=== PATIENT | male | born 1955 | race Two or more races ===

== ENCOUNTER 2024-10-26 07:35 | Inpatient (IN) | payer OTHER ==
[~2024-10-26] VITALS: Ht 198.1 cm; Wt 73.9 kg
[2024-10-26] MEDS ORDERED: [UNRECOGNIZED DRUG - REMARK] (08:04)
[2024-10-26 08:05] VITALS: BP 168/90
[2024-10-26 08:30] LABS: PH,URINE 5.5 (5.0-8.0); URINE APPEARANCE Clear; URINE BILIRRUBIN Negative (NEGATIVE); URINE BLOOD Negative; URINE COLOR Yellow; URINE GLUCOSE Negative (NEGATIVE); URINE KETONE Negative (NEGATIVE); URINE LEUKOCYTE Negative; URINE NITRATE Negative; URINE PROTEIN Negative (NEGATIVE); URINE UROBILINOGEN 0.2 E.U./dl
[2024-10-26 08:31] LABS: HEMATOCRIT 41.9 % (39.0-48.0); MEAN CELL VOLUME 92.3 fL (80.0-100.00); MEAN CORPUSCULAR HEMOGLOBIN 30.8 pg (27.00-32.0); MEAN CORPUSCULAR HGB CONC 33.4 g/dl (32.0-36.0); RED BLOOD COUNT 4.54 M/uL (4.00-6.00); RED CELL DISTRIBUTION WIDTH 13.5 % (11.5-14.5)
[2024-10-26 08:32] LABS: URINE BACTERIA 23.9 uL (0.0-1933); URINE EPITHELIAL CELLS 2.3 uL (0.0-38.8); URINE RBC 3.8 uL (0.0-20.8); URINE WBC 3.5 uL (0.0-23.2)
[2024-10-26 08:33] LABS: URINE CAST 0.15 uL (0.0-1.40)
[2024-10-26 08:45] LABS: PLATELET COUNT 93 K/uL (150-450)
[2024-10-26 08:55] LABS: INR 0.97; PARTIAL THROMBOPLASTIN TIME 28.5 SECONDS (22.0-34.0)
[2024-10-26 09:15] LABS: PROTHROMBIN TIME 10.6 SECONDS (9.0-11.5)
[2024-10-26 09:27] LABS: ALBUMIN 3.9 gm/dL (3.4-5.0); BILIRUBIN TOTAL 0.59 mg/dL (0.3-1.2); CALCIUM 8.6 mg/dL (8.5-10.1); CREATININE SERUM 0.9 mg/dL (0.70-1.30); GFR 83.18; GLOBULINA 3.2 G/DL (2.4-3.5); POTASSIUM 3.94 mEq/L (3.5-5.1); TOTAL PROTEIN 7.1 gm/dL (6.4-8.2)
[2024-11-02] MEDS ORDERED: METRONIDAZOLE/SODIUM CHLORIDE 500 MG/100 ML PIGGYBACK IV SCH (11:30)
[2024-11-02] MEDS ORDERED: CEFTRIAXONE SODIUM 2,000 MG VIAL IV SCH (11:30)
[2024-11-02] MEDS ORDERED: LOSARTAN POTASS50 MG (15:33)
[2024-11-02] MEDS ORDERED: DORZOLAMIDE-TIM10 ML (15:33)
[2024-11-02] MEDS ORDERED: IRBESARTAN300 MG (15:33)
[2024-11-02] MEDS ORDERED: LUMIGAN2.5 M1 (15:33)
[2024-11-02] MEDS ORDERED: ONDANSETRON HCL 2 MG/ML VIAL IV PRN (17:15)
[2024-11-02] MEDS ORDERED: 0.9 % SODIUM CHLORIDE 1,000 ML IV SCH (17:15)
[2024-11-02] MEDS ORDERED: DEXTROSE 50 % IN WATER 0.5 G/ML DISP.SYRIN IV PRN (17:15)
[2024-11-02] MEDS ORDERED: MORPHINE SULFATE 4 MG/ML CARTRIDGE IV PRN (17:15)
[2024-11-02] MEDS ORDERED: MIDAZOLAM HCL 50 MG/10 ML VIAL IV SCH (17:45)
[2024-11-02] MEDS ORDERED: FentaNYL CITRATE/PF 50MCG/ML 2ML VIAL IJ STA (17:48)
[2024-11-02] MEDS ORDERED: MIDAZOLAM HCL 100 MG in 0.9 % SODIUM CHLORIDE 100 ML IV SCH (18:00)
[2024-11-02 19:09] LABS: HEMATOCRIT 42.5 % (39.0-48.0); HEMOGLOBIN 13.7 g/dL (13-16.00); MEAN CELL VOLUME 91.1 fL (80.0-100.00); MEAN CORPUSCULAR HEMOGLOBIN 29.3 pg (27.00-32.0); MEAN CORPUSCULAR HGB CONC 32.2 g/dl (32.0-36.0); RED BLOOD COUNT 4.67 M/uL (4.00-6.00); RED CELL DISTRIBUTION WIDTH 14.2 % (11.5-14.5)
[2024-11-02 19:10] LABS: PLATELET COUNT 76 K/uL (150-450)
[2024-11-02 19:24] LABS: ALBUMIN 2.5 gm/dL (3.4-5.0); CALCIUM 7.7 mg/dL (8.5-10.1); CREATININE SERUM 1.3 mg/dL (0.70-1.30); GFR 54.42; MAGNESIUM 1.5 mg/dL (1.8-2.4); PHOSPHOROUS 4.6 mg/dL (2.5-4.9)
[2024-11-02 19:29] LABS: POTASSIUM 6.23 mEq/L (3.5-5.1)
[2024-11-02] MEDS ORDERED: PROPOFOL 100 ML IV SCH (19:30)
[2024-11-02 19:56] LABS: ABG PH 7.242 (7.35-7.45); ABG PO2 241.2 mmHg (80-100); ABG pCO2 41.7 mmHg (35-45); BASE EXCESS -9.4 mmol/l; BICARBONATE 17.5 mmol/l (23-25); SaO2 99.7 %; Tco2 18.8 mmol/l; o2 100 %
[2024-11-02 19:57] LABS: allen test SATISFACTORY; puncture site RADIAL RIGHT
[2024-11-02] MEDS ORDERED: NOREPINEPHRINE BITARTRATE 8 MG in DEXTROSE 5 % IN WATER 250 ML IV SCH (22:00)
[2024-11-02] MEDS ORDERED: SODIUM BICARBONATE 1 MEQ/ML DISP.SYRIN 50ML IV ONE (22:00)
[2024-11-03] VITALS (17 sets, daily range): BP systolic 71–158; BP diastolic 44–99; O2SAT 95–100
[2024-11-03 03:10] LABS: HEMATOCRIT 38.8 % (39.0-48.0); HEMOGLOBIN 12.8 g/dL (13-16.00); MEAN CELL VOLUME 90.9 fL (80.0-100.00); PLATELET COUNT 135 K/uL (150-450); RED BLOOD COUNT 4.26 M/uL (4.00-6.00); RED CELL DISTRIBUTION WIDTH 14.4 % (11.5-14.5)
[2024-11-03 06:32] LABS: HEMATOCRIT 40.4 % (39.0-48.0); HEMOGLOBIN 13.4 g/dL (13-16.00); MEAN CELL VOLUME 92.1 fL (80.0-100.00); MEAN CORPUSCULAR HEMOGLOBIN 30.6 pg (27.00-32.0); MEAN CORPUSCULAR HGB CONC 33.2 g/dl (32.0-36.0); PLATELET COUNT 132 K/uL (150-450); RED BLOOD COUNT 4.39 M/uL (4.00-6.00)
[2024-11-03 06:56] LABS: ALBUMIN 2.4 gm/dL (3.4-5.0); CREATININE SERUM 3.36 mg/dL (0.70-1.30); GFR 18.19; MAGNESIUM 1.5 mg/dL (1.8-2.4); PHOSPHOROUS 5.2 mg/dL (2.5-4.9)
[2024-11-03] MEDS ORDERED: 0.9 % SODIUM CHLORIDE 500 ML IV ONE (07:15)
[2024-11-03] MEDS ORDERED: PHENYLEPHRINE HCL 20 MG in 0.9 % SODIUM CHLORIDE 250 ML IV SCH (07:15)
[2024-11-03 07:20] LABS: CALCIUM 6.4 mg/dL (8.5-10.1); POTASSIUM 6.66 mEq/L (3.5-5.1)
[2024-11-03] MEDS ORDERED: SODIUM POLYSTYRENE SULFONATE 30G/8 TSP NGT SCH (08:00)
[2024-11-03] MEDS ORDERED: CALCIUM GLUCONATE 100 MG/ML VIAL IV NR (09:00)
[2024-11-03] MEDS ORDERED: HYOSCYAMINE SULFATE 0.125 MG TAB.SUBL SL SCH (09:00)
[2024-11-03] MEDS ORDERED: SODIUM BICARBONATE 50MEQ/50ML VIAL IV NR ×2 (09:00→10:00)
[2024-11-03] MEDS ORDERED: SODIUM BICARBONATE 150 MEQ in DEXTROSE 5 % IN WATER 1,000 ML IV SCH (09:45)
[2024-11-03] MEDS ORDERED: MEROPENEM 1,000 MG VIAL IV SCH (09:51)
[2024-11-03] MEDS ORDERED: AMINOCAPROIC ACID 250 MG/ML VIAL IV STA (09:53)
[2024-11-03 10:10] LABS: ABG PH 7.185 (7.35-7.45)
[2024-11-03 10:11] LABS: ABG PO2 154.5 mmHg (80-100); ABG pCO2 31.2 mmHg (35-45); BASE EXCESS -15.4 mmol/l; BICARBONATE 11.5 mmol/l (23-25); SaO2 98.5 %; Tco2 12.5 mmol/l
[2024-11-03 10:12] LABS: allen test SATISFACTORY; puncture site RADIAL LEFT
[2024-11-03 10:14] LABS: o2 100 %
[2024-11-03] MEDS ORDERED: AMINOCAPROIC ACID IV NR (11:00)
[2024-11-03] MEDS ORDERED: SODIUM CHLORIDE 0.9% IV NR (11:00)
[2024-11-03 15:20] LABS: HEMATOCRIT 35.5 % (39.0-48.0); MEAN CELL VOLUME 88.8 fL (80.0-100.00); MEAN CORPUSCULAR HEMOGLOBIN 30.1 pg (27.00-32.0); MEAN CORPUSCULAR HGB CONC 33.9 g/dl (32.0-36.0); RED CELL DISTRIBUTION WIDTH 14.8 % (11.5-14.5)
[2024-11-03 15:21] LABS: PLATELET COUNT 79 K/uL (150-450)
[2024-11-03] MEDS ORDERED: OCTREOTIDE ACETATE 1,250 MCG in 0.9 % SODIUM CHLORIDE 250 ML IV SCH (17:00)
[2024-11-03] MEDS ORDERED: OCTREOTIDE ACETATE 0.05MG/ML (50MCG/ML) AMPUL IV NR (17:00)
[2024-11-03 17:57] LABS: URINE APPEARANCE Turbid; URINE BILIRRUBIN Small (NEGATIVE); URINE BLOOD Large; URINE COLOR Dark Yellow; URINE GLUCOSE Negative (NEGATIVE); URINE KETONE Trace (NEGATIVE); URINE LEUKOCYTE Small; URINE NITRATE Negative; URINE UROBILINOGEN 0.2 E.U./dl
[2024-11-03 17:58] LABS: URINE BACTERIA 1439.4 uL (0.0-1933); URINE EPITHELIAL CELLS 35.4 uL (0.0-38.8); URINE RBC 19.6 uL (0.0-20.8); URINE WBC 23.5 uL (0.0-23.2)
[2024-11-03 18:21] LABS: URINE CAST > 21.83 uL (0.0-1.40); URINE CRYSTALS FEW /HPF; URINE PROTEIN 300 (NEGATIVE)
[2024-11-03] MEDS ORDERED: MEROPENEM 500 MG/VIAL VIAL IV SCH (21:00)
[2024-11-04] VITALS (17 sets, daily range): BP systolic 89–140; BP diastolic 64–92; O2SAT 100
[2024-11-04 03:08] LABS: HEMATOCRIT 33.5 % (39.0-48.0); HEMOGLOBIN 11.4 g/dL (13-16.00); MEAN CELL VOLUME 88.2 fL (80.0-100.00); MEAN CORPUSCULAR HEMOGLOBIN 30.1 pg (27.00-32.0); MEAN CORPUSCULAR HGB CONC 34.1 g/dl (32.0-36.0); RED CELL DISTRIBUTION WIDTH 14.6 % (11.5-14.5)
[2024-11-04 03:10] LABS: PLATELET COUNT 60 K/uL (150-450)
[2024-11-04 03:55] LABS: ALBUMIN 2.2 gm/dL (3.4-5.0); BILIRUBIN TOTAL 1.82 mg/dL (0.3-1.2); POTASSIUM 3.88 mEq/L (3.5-5.1); TOTAL PROTEIN 4.2 gm/dL (6.4-8.2)
[2024-11-04 04:02] LABS: GFR 10.54
[2024-11-04 04:11] LABS: CREATININE SERUM 5.39 mg/dL (0.70-1.30)
[2024-11-04 04:12] LABS: CALCIUM 6.3 mg/dL (8.5-10.1)
[2024-11-04] MEDS ORDERED: SODIUM CHLORIDE 0.9% IV SCH (08:30)
[2024-11-04] MEDS ORDERED: OCTREOTIDE ACETATE IV SCH (08:30)
[2024-11-04 12:36] LABS: ABG PH 7.397 (7.35-7.45); ABG PO2 95.4 mmHg (80-100); BASE EXCESS -2.1 mmol/l; BICARBONATE 22.2 mmol/l (23-25); SaO2 97.3 %; Tco2 23.4 mmol/l
[2024-11-04 12:37] LABS: allen test SATISFACTORY; o2 70 %; puncture site RADIAL RIGHT
[2024-11-04] MEDS ORDERED: VANCOMYCIN HCL 1,000 MG VIAL IV ONE (14:45)
[2024-11-04] MEDS ORDERED: CALCIUM GLUCONATE 100 MG/ML VIAL IV ONE (18:00)
[2024-11-04] MEDS ORDERED: AMINOCAPROIC ACID 250 MG/ML VIAL IV ONE (18:30)
[2024-11-04 23:20] LABS: HEMATOCRIT 28.6 % (39.0-48.0); MEAN CELL VOLUME 88.1 fL (80.0-100.00); MEAN CORPUSCULAR HEMOGLOBIN 31.1 pg (27.00-32.0); MEAN CORPUSCULAR HGB CONC 35.3 g/dl (32.0-36.0); RED BLOOD COUNT 3.24 M/uL (4.00-6.00); RED CELL DISTRIBUTION WIDTH 14.6 % (11.5-14.5)
[2024-11-04 23:28] LABS: HEMOGLOBIN 10.1 g/dL (13-16.00); PLATELET COUNT 81 K/uL (150-450)
[2024-11-04 23:31] LABS: INR 1.18; PARTIAL THROMBOPLASTIN TIME 29.3 SECONDS (22.0-34.0); PROTHROMBIN TIME 12.7 SECONDS (9.0-11.5)
[2024-11-05 04:00] VITALS: BP 134/86; O2SAT 100
[2024-11-05 07:06] LABS: HEMATOCRIT 28.1 % (39.0-48.0); HEMOGLOBIN 9.8 g/dL (13-16.00); MEAN CELL VOLUME 88.5 fL (80.0-100.00); MEAN CORPUSCULAR HEMOGLOBIN 30.8 pg (27.00-32.0); MEAN CORPUSCULAR HGB CONC 34.8 g/dl (32.0-36.0); RED BLOOD COUNT 3.17 M/uL (4.00-6.00); RED CELL DISTRIBUTION WIDTH 14.6 % (11.5-14.5)
[2024-11-05 07:14] LABS: PLATELET COUNT 78 K/uL (150-450)
[2024-11-05 07:18] VITALS: BP 124/81; O2SAT 100
[2024-11-05 07:53] LABS: PHOSPHOROUS 4.4 mg/dL (2.5-4.9); POTASSIUM 3.75 mEq/L (3.5-5.1)
[2024-11-05] MEDS ORDERED: PANTOPRAZOLE SODIUM 80 MG in 0.9 % SODIUM CHLORIDE 100 ML IV SCH (08:00)
[2024-11-05 08:02] LABS: GFR 6.75
[2024-11-05 08:03] LABS: CALCIUM 6.1 mg/dL (8.5-10.1); CREATININE SERUM 7.93 mg/dL (0.70-1.30)
[2024-11-05 08:48] LABS: ABG PH 7.441 (7.35-7.45); ABG PO2 119.3 mmHg (80-100); ABG pCO2 32.4 mmHg (35-45); BASE EXCESS -1.6 mmol/l; BICARBONATE 21.6 mmol/l (23-25); SaO2 98.8 %; Tco2 22.5 mmol/l
[2024-11-05 08:49] LABS: allen test SATISFACTORY; o2 50 %; puncture site RADIAL RIGHT
[2024-11-05] MEDS ORDERED: CHLORHEXIDINE GLUCONATE 15ML BRUSH KIT MM SCH (09:00)
[2024-11-05] MEDS ORDERED: MEROPENEM 500 MG/VIAL VIAL IV SCH (09:00)
[2024-11-05] MEDS ORDERED: POLYVINYL ALCOHOL 15 ML DROPS OP SCH (09:00)
[2024-11-05 12:00] VITALS: BP 155/99; O2SAT 100
[2024-11-05 14:53] LABS: HEMATOCRIT 31.6 % (39.0-48.0); HEMOGLOBIN 10.7 g/dL (13-16.00); MEAN CELL VOLUME 88.6 fL (80.0-100.00); MEAN CORPUSCULAR HGB CONC 33.9 g/dl (32.0-36.0); RED BLOOD COUNT 3.56 M/uL (4.00-6.00); RED CELL DISTRIBUTION WIDTH 15.4 % (11.5-14.5)
[2024-11-05 15:00] LABS: PLATELET COUNT 67 K/uL (150-450)
[2024-11-05 16:16] VITALS: BP 162/97; O2SAT 100
[2024-11-05] MEDS ORDERED: AMINOCAPROIC ACID 250 MG/ML VIAL IV NR (16:19)
[2024-11-05] MEDS ORDERED: CALCIUM GLUCONATE 100 MG/ML VIAL IV ONE (19:30)
[2024-11-05 20:00] VITALS: BP 167/93; O2SAT 100
[2024-11-05 23:35] VITALS: BP 165/94; O2SAT 100
[2024-11-06 02:52] LABS: HEMATOCRIT 28.2 % (39.0-48.0); HEMOGLOBIN 9.9 g/dL (13-16.00); MEAN CELL VOLUME 86.6 fL (80.0-100.00); MEAN CORPUSCULAR HEMOGLOBIN 30.4 pg (27.00-32.0); MEAN CORPUSCULAR HGB CONC 35.1 g/dl (32.0-36.0); RED BLOOD COUNT 3.25 M/uL (4.00-6.00)
[2024-11-06 02:53] LABS: PLATELET COUNT 67 K/uL (150-450)
[2024-11-06 04:00] VITALS: BP 163/90; O2SAT 100
[2024-11-06 07:07] VITALS: BP 162/99; O2SAT 100
[2024-11-06 08:29] LABS: HEMOGLOBIN 9.6 g/dL (13-16.00); MEAN CELL VOLUME 87.9 fL (80.0-100.00); MEAN CORPUSCULAR HEMOGLOBIN 30.2 pg (27.00-32.0); MEAN CORPUSCULAR HGB CONC 34.4 g/dl (32.0-36.0); RED BLOOD COUNT 3.19 M/uL (4.00-6.00); RED CELL DISTRIBUTION WIDTH 15.5 % (11.5-14.5)
[2024-11-06 09:02] LABS: INR 1.12; PROTHROMBIN TIME 12.1 SECONDS (9.0-11.5)
[2024-11-06 09:04] LABS: BILIRUBIN TOTAL 3.97 mg/dL (0.3-1.2); GLOBULINA 2.1 G/DL (2.4-3.5); MAGNESIUM 1.5 mg/dL (1.8-2.4); POTASSIUM 3.87 mEq/L (3.5-5.1); TOTAL PROTEIN 4.1 gm/dL (6.4-8.2)
[2024-11-06 09:18] LABS: GFR 6.59
[2024-11-06 09:19] LABS: CALCIUM 6.5 mg/dL (8.5-10.1); CREATININE SERUM 8.1 mg/dL (0.70-1.30)
[2024-11-06 09:40] LABS: PLATELET COUNT 64 K/uL (150-450)
[2024-11-06 10:02] LABS: ABG PH 7.397 (7.35-7.45); ABG PO2 250.4 mmHg (80-100); ABG pCO2 30.9 mmHg (35-45); BICARBONATE 18.6 mmol/l (23-25); SaO2 99.8 %; Tco2 19.5 mmol/l; allen test SATISFACTORY; puncture site RADIAL LEFT
[2024-11-06 10:04] LABS: o2 100 %
[2024-11-06 12:00] VITALS: BP 148/90; O2SAT 100
[2024-11-06 15:27] VITALS: BP 148/90; O2SAT 100
[2024-11-06] MEDS ORDERED: AA 4.25%/CALCIUM/LYTES/DEX 10% 1,000 ML CENTRAL SCH (15:50)
[2024-11-06] MEDS ORDERED: AMINO ACIDS 4.25%/DEXTROSE 10% 1,000 ML CENTRAL SCH (17:00)
[2024-11-06 17:06] LABS: PH,URINE 6.5 (5.0-8.0); URINE APPEARANCE Cloudy; URINE BILIRRUBIN Negative (NEGATIVE); URINE BLOOD Large; URINE COLOR Dark Yellow; URINE KETONE Trace (NEGATIVE); URINE LEUKOCYTE Negative; URINE NITRATE Negative; URINE UROBILINOGEN 0.2 E.U./dl
[2024-11-06 17:10] LABS: URINE BACTERIA 48.9 uL (0.0-1933); URINE EPITHELIAL CELLS 70.2 uL (0.0-38.8); URINE RBC 433.3 uL (0.0-20.8); URINE WBC 30.5 uL (0.0-23.2)
[2024-11-06 18:04] LABS: URINE GLUCOSE 100 MG/DL (NEGATIVE); URINE PROTEIN 300 (NEGATIVE)
[2024-11-06] MEDS ORDERED: HEPARIN SODIUM,PORCINE 5,000 UNITS/ML VIAL IV ONE (19:45)
[2024-11-06 20:00] VITALS: BP 149/76; O2SAT 100
[2024-11-06] MEDS ORDERED: DIATRIZOATE MEGLUMINE, SODIUM 30 ML BOTTLE PO ONE ×2 (21:15→23:45)
[2024-11-06 23:14] VITALS: BP 152/99; O2SAT 100
[2024-11-07] VITALS (8 sets, daily range): BP systolic 100–151; BP diastolic 56–91; O2SAT 100
[2024-11-07] MEDS ORDERED: DIATRIZOATE MEGLUMINE, SODIUM 30 ML BOTTLE PO ONE (05:00)
[2024-11-07 06:01] LABS: ALBUMIN 1.9 gm/dL (3.4-5.0); BILIRUBIN TOTAL 5.35 mg/dL (0.3-1.2); BILIRUBIN,CONJUGATED 4.25 mg/dL (0.0-0.2); BILIRUBIN,UNCONJUGATED 1.1 mg/dL (0.0-0.6); MAGNESIUM 1.8 mg/dL (1.8-2.4); PHOSPHOROUS 3.9 mg/dL (2.5-4.9); POTASSIUM 3.37 mEq/L (3.5-5.1); TOTAL PROTEIN 4.4 gm/dL (6.4-8.2)
[2024-11-07 06:06] LABS: GFR 7.97
[2024-11-07 06:08] LABS: CALCIUM 6.3 mg/dL (8.5-10.1); CREATININE SERUM 6.87 mg/dL (0.70-1.30)
[2024-11-07 07:22] LABS: HEMATOCRIT 26.9 % (39.0-48.0); HEMOGLOBIN 9.3 g/dL (13-16.00); MEAN CELL VOLUME 87.6 fL (80.0-100.00); MEAN CORPUSCULAR HEMOGLOBIN 30.1 pg (27.00-32.0); MEAN CORPUSCULAR HGB CONC 34.4 g/dl (32.0-36.0); RED BLOOD COUNT 3.07 M/uL (4.00-6.00); RED CELL DISTRIBUTION WIDTH 15.1 % (11.5-14.5)
[2024-11-07 08:08] LABS: PLATELET COUNT 43 K/uL (150-450)
[2024-11-07 08:10] LABS: MANUAL PLATELET COUNT 130
[2024-11-07 08:21] LABS: ABG PH 7.414 (7.35-7.45); ABG PO2 78.2 mmHg (80-100); ABG pCO2 30.1 mmHg (35-45); BASE EXCESS -4.4 mmol/l; BICARBONATE 18.8 mmol/l (23-25); SaO2 95.4 %; Tco2 19.7 mmol/l
[2024-11-07] MEDS ORDERED: PROPOFOL 100 ML IV SCH ×2 (11:45→12:00)
[2024-11-07 12:15] LABS: allen test SATISFACTORY; o2 50 %; puncture site RADIAL RIGHT
[2024-11-07] MEDS ORDERED: AMINOCAPROIC ACID 1,000 MG in 0.9 % SODIUM CHLORIDE 250 ML IV NR (14:00)
[2024-11-07] MEDS ORDERED: MANNITOL 0.2 GM/ML (500ML) IV.SOLN IV SCH (14:41)
[2024-11-07 22:31] LABS: ALBUMIN 1.8 gm/dL (3.4-5.0); BILIRUBIN TOTAL 6.56 mg/dL (0.3-1.2); GLOBULINA 2.4 G/DL (2.4-3.5); POTASSIUM 3.74 mEq/L (3.5-5.1); TOTAL PROTEIN 4.2 gm/dL (6.4-8.2)
[2024-11-07 22:33] LABS: GFR 6.69
[2024-11-07 22:35] LABS: CALCIUM 6.4 mg/dL (8.5-10.1); CREATININE SERUM 7.99 mg/dL (0.70-1.30)
[2024-11-08] VITALS (17 sets, daily range): BP systolic 139–200; BP diastolic 86–99; O2SAT 99–100
[2024-11-08 06:55] LABS: HEMOGLOBIN 9.5 g/dL (13-16.00); MEAN CELL VOLUME 87.8 fL (80.0-100.00); MEAN CORPUSCULAR HEMOGLOBIN 30.8 pg (27.00-32.0); MEAN CORPUSCULAR HGB CONC 35.1 g/dl (32.0-36.0); RED BLOOD COUNT 3.07 M/uL (4.00-6.00); RED CELL DISTRIBUTION WIDTH 15.8 % (11.5-14.5)
[2024-11-08 07:11] LABS: PLATELET COUNT 54 K/uL (150-450)
[2024-11-08 07:12] LABS: ALBUMIN 1.8 gm/dL (3.4-5.0); BILIRUBIN TOTAL 7.27 mg/dL (0.3-1.2); BILIRUBIN,UNCONJUGATED 1.27 mg/dL (0.0-0.6); CALCIUM 6.6 mg/dL (8.5-10.1); CHOL HDL RATIO 9.5 (0-5.0); MAGNESIUM 2.2 mg/dL (1.8-2.4); POTASSIUM 3.88 mEq/L (3.5-5.1); TOTAL PROTEIN 4.2 gm/dL (6.4-8.2)
[2024-11-08 07:14] LABS: CREATININE SERUM 8.63 mg/dL (0.70-1.30); GFR 6.12
[2024-11-08 07:18] LABS: INR 1.1; PARTIAL THROMBOPLASTIN TIME 32.3 SECONDS (22.0-34.0); PROTHROMBIN TIME 11.9 SECONDS (9.0-11.5)
[2024-11-08] MEDS ORDERED: VANCOMYCIN HCL 1,000 MG VIAL IV NR (08:00)
[2024-11-08 08:28] LABS: ABG PO2 92.7 mmHg (80-100); ABG pCO2 29.5 mmHg (35-45); BASE EXCESS -7.1 mmol/l; BICARBONATE 16.7 mmol/l (23-25); SaO2 96.7 %; Tco2 17.6 mmol/l
[2024-11-08 08:32] LABS: allen test SATISFACTORY; o2 50 %; puncture site RADIAL RIGHT
[2024-11-08 08:41] LABS: MANUAL PLATELET COUNT 170
[2024-11-08 09:43] LABS: UREA CLEARANCE 0.7 ML/MIN
[2024-11-08] MEDS ORDERED: PROPOFOL 10,000 MCG/ML VIAL IV SCH (12:30)
[2024-11-08] MEDS ORDERED: PROPOFOL 100 ML IV SCH (12:45)
[2024-11-08] MEDS ORDERED: OCTREOTIDE ACETATE 100MCG/ML (0.1MG/ML) AMPUL SUBCUTANEO SCH (17:00)
[2024-11-08] MEDS ORDERED: VANCOMYCIN HCL 500 MG VIAL IV SCH (21:00)
[2024-11-08] MEDS ORDERED: PANTOPRAZOLE SODIUM 40 MG/VIAL VIAL IV SCH (21:00)
== END 2024-11-08 20:35 | disposition designated cancer center or children's hospital (05) | DRG 907 ==
LOC: O/R 11-02 06:20 → ICU 11-02 06:20 → CIR.AMB 11-02 07:33 → EDSTATUS 11-02 07:45 → SURG 11-02 07:50 → ICU 11-03 06:06
PROVIDERS: Internal Medicine; Internal Medicine Geriatric Medicine; Internal Medicine Infectious Disease; Internal Medicine Nephrology; ADMIT Surgery; ATTEND Surgery
PROC: 30233N1 Transfusion of Nonautologous Red Blood Cells into Peripheral Vein, Percutaneous Approach (ICD-10-PCS; 2024-11-02)
PROC: 0DTF0ZZ Resection of Right Large Intestine, Open Approach (ICD-10-PCS; principal; 2024-11-03)
PROC: 07BB0ZZ Excision of Mesenteric Lymphatic, Open Approach (ICD-10-PCS; 2024-11-03)
PROC: 0DBU0ZZ Excision of Omentum, Open Approach (ICD-10-PCS; 2024-11-03)
PROC: 06HM33Z Insertion of Infusion Device into Right Femoral Vein, Percutaneous Approach (ICD-10-PCS; 2024-11-03)
PROC: 30233L1 Transfusion of Nonautologous Fresh Plasma into Peripheral Vein, Percutaneous Approach (ICD-10-PCS; 2024-11-03)
PROC: 30233K1 Transfusion of Nonautologous Frozen Plasma into Peripheral Vein, Percutaneous Approach (ICD-10-PCS; 2024-11-03)
PROC: B24BZZZ Ultrasonography of Heart with Aorta (ICD-10-PCS; 2024-11-03)
PROC: 5A1D70Z Performance of Urinary Filtration, Intermittent, Less than 6 Hours Per Day (ICD-10-PCS; 2024-11-03)
PROC: 0DJD4ZZ Inspection of Lower Intestinal Tract, Percutaneous Endoscopic Approach (ICD-10-PCS; 2024-11-03)
PROC: 30233R1 Transfusion of Nonautologous Platelets into Peripheral Vein, Percutaneous Approach (ICD-10-PCS; 2024-11-04)
PROC: BH4BZZZ Ultrasonography of Chest Wall (ICD-10-PCS; 2024-11-05)
PROC: BW21YZZ Computerized Tomography (CT Scan) of Abdomen and Pelvis using Other Contrast (ICD-10-PCS; 2024-11-06)
PROC: BW24ZZZ Computerized Tomography (CT Scan) of Chest and Abdomen (ICD-10-PCS; 2024-11-06)
PROC: BW28ZZZ Computerized Tomography (CT Scan) of Head (ICD-10-PCS; 2024-11-06)
PROC: 5A1D70Z Performance of Urinary Filtration, Intermittent, Less than 6 Hours Per Day (ICD-10-PCS; 2024-11-06)
PROC: 05PYX3Z Removal of Infusion Device from Upper Vein, External Approach (ICD-10-PCS; 2024-11-08)
PROC: 06HM33Z Insertion of Infusion Device into Right Femoral Vein, Percutaneous Approach (ICD-10-PCS; 2024-11-08)
DX: T81.19XA Other postprocedural shock, initial encounter (principal); D65 Disseminated intravascular coagulation [defibrination syndrome]; J95.821 Acute postprocedural respiratory failure; I21.A1 Myocardial infarction type 2; K72.00 Acute and subacute hepatic failure without coma; C7A.012 Malignant carcinoid tumor of the ileum; G93.1 Anoxic brain damage, not elsewhere classified; N17.9 Acute kidney failure, unspecified; D62 Acute posthemorrhagic anemia; G91.1 Obstructive hydrocephalus; T82.41XA Breakdown (mechanical) of vascular dialysis catheter, initial encounter; K91.870 Postprocedural hematoma of a digestive system organ or structure following a digestive system procedure; R59.0 Localized enlarged lymph nodes; I10 Essential (primary) hypertension; I95.89 Other hypotension; E87.5 Hyperkalemia; Z53.31 Laparoscopic surgical procedure converted to open procedure